=== PATIENT | male | born 1995 | race Caucasian/White ===

== ENCOUNTER 2017-06-04 17:02 | Emergency (ER) | payer OTHER, BC ==
[2017-06-04 17:11] VITALS: BP 118/78; BMI 31.4
--- NOTE | 2017-06-04 17:38 | DR.GENAD ---
HPI - PCP Primary Care Physician: erin - Complaint/Symptoms Chief Complaint Doctors Comments: History as stated Chief Complaint:: patient stated he fell at work and landed on his right elbow and left lower leg - Source History Provided: Patient - Mode of Arrival Mode of Arrival: Ambulatory - Timing Onset of Chief Complaint: 06/04/17 PMH - PMH Past Medical History: Yes Past Medical History: GERD Past Surgical History: Yes Surgical History: Ortho Surgery Unable to Obtain Due To: Dementia - Family History History of Family Medical Conditions: Yes Family Medical History: Hypertension - Social History Does patient currently use any type of tobacco product: No Have you used tobacco products in the last 12 months: No Type of Tobacco Use: None Does any household member use tobacco: No Alcohol Use: None Do you use any recreational Drugs:: No Lives With: Family Lives Where: Home - infectious screening In the last 2 months have you had wt loss of >10#?: NO Have you had fever, night sweats or hemotysis?: No Have you traveled outside the country in the last 6 months?: No Isolation: Standard ROS - Review of Systems Eyes: No Symptoms Reported ENTM: No Symptoms Reported Respiratoy: No Symptoms Reported Cardiovascular: No Symptoms Reported Gastrointestinal/Abdominal: No Symptoms Reported Genitourinary: No Symptoms Reported Neurological: No Symptoms Reported Musculoskeletal: Elbow (abrasions), Leg Hematologic/Lymphatic: No Symptoms Reported Endocrine: No Symptoms Reported Psychiatric: No Symptoms Reported All Other Systems: Reviewed and Negative PE - Vital Signs Vitals: Temperature 98.1 F Pulse Rate 62 Respiratory Rate 16 Blood Pressure 118/78 O2 Sat by Pulse Oximetry 98 - General General Appearance: Alert, In No Apparent Distress - Head Head Exam: Normal Inspection, Atraumatic - Eyes Eye exam: Normal Appearance, PERRL, EOMI - ENT ENT Exam: Normal Exam, Normal Oropharynx External Ear Exam: Normal External Inspection TM/Canal Exam: Bilateral Normal Nose Exam: Normal Nose Exam Mouth Exam: Normal Inspection Throat Exam: Normal Inspection - Neck Neck Exam: Normal Inspection - Chest Chest Inspection: Normal Inspection - Respiratory Respiratory Exam: Normal Lung Sounds Bilat Respiratory Exam: Bilateral Clear to Auscultation - Cardiovascular Cardiovascular Exam: Regular Rate, Normal Rhythm - Abdominal Exam Abdominal Exam: Normal Inspection, Normal Bowel Sounds Abdominal Tenderness: negative: RUQ, RLQ, LUQ, LLQ, Epigastrium, Suprapubic, Diffuse, Mild, Moderate, Severe, Other - Extremities Extremities Exam: Tenderness (right lower extremity w/o abrasion) - Back Back Exam: Normal Inspection, Full ROM - Neurologic Neurological Exam: Alert, Oriented X3, CN II-XII Intact - Psychiatric Psychiatric Exam: Normal Affect, Normal Mood - Skin Skin Exam: Warm, Dry, Other (right hip contusion) ROR - XRAY XRAY Interpreted by: Radiologist (RLE/Hip: negative for fracture) - Diagnosis Discharge Problem: Contusion of right hip Qualifiers: Encounter type: initial encounter Qualified Code(s): S70.01XA - Contusion of right hip, initial encounter Contusion of elbow, right Qualifiers: Encounter type: initial encounter Qualified Code(s): S50.01XA - Contusion of right elbow, initial encounter - Discharge Plan Condition: Stable - Follow ups/Referrals Follow ups/Referrals: KIM GODINEZ [Primary Care Provider] - 3 days - Instructions
--- NOTE | 2017-06-04 18:11 | RAD ---
Two views of the left foreleg Indication: Foreleg pain after fall. Findings: No acute fracture or malalignment of the left foreleg. No localizing soft tissue swelling. Left ankle the knee joint alignment are anatomic. Impression: No radiographic abnormality within the left foreleg. Reported By:
--- NOTE | 2017-06-04 19:09 | RAD ---
Right elbow three views Indication: Pain after fall. Findings: There is no effusion or displaced fat pads. No cortical lucency or malalignment seen. Impression: No acute right elbow fracture. Reported By:
== END 2017-06-04 19:42 | disposition home or self-care (01) ==
LOC: ER 17:21
DX: S70.01XA Contusion of right hip, initial encounter (principal); S50.01XA Contusion of right elbow, initial encounter; W19.XXXA Unspecified fall, initial encounter; Y92.69 Other specified industrial and construction area as the place of occurrence of the external cause
CPT/HCPCS: 73070; 73590; 99282

== ENCOUNTER 2017-07-17 13:34 | Emergency (ER) | payer OTHER, BC ==
[2017-07-17 13:37] VITALS: BP 133/79; BMI 32.1
[2017-07-17] MEDS ORDERED: ADACEL TDaP IM ONE ×2 (13:50→13:53)
--- NOTE | 2017-07-17 14:06 | DR.GENAD ---
HPI - PCP Primary Care Physician: KATLYN - HPI Comment HPI Comment: FINGER WAS CUT IN A MACHINE TODAY. TD NOT UTD. - Complaint/Symptoms Chief Complaint Doctors Comments: CRUSH INJURY WITH LACERATION RT 3RD FINGER. Chief Complaint:: PT C/O RT 3 RD DIGIT LACERATION. PT STATES HE GOT HIS HAND CAUGHT IN A MACHINE - Nurses notes reviewed Nurses Notes Review: Yes - Source History Provided: Patient - Mode of Arrival Mode of Arrival: Ambulatory - Timing Onset of Chief Complaint: 07/17/17 Came on: Suddenly - Duration Duration: Constant Duration: Hours - Severity Severity: Moderate PMH - PMH Past Medical History: Yes Past Medical History: GERD Past Surgical History: Yes Surgical History: Ortho Surgery Past Surgical History Comment: SHOULDER - Family History History of Family Medical Conditions: Yes Family Medical History: Hypertension - Social History Does any household member use tobacco: No Alcohol Use: None Do you use any recreational Drugs:: No Lives With: Family Lives Where: Home - infectious screening In the last 2 months have you had wt loss of >10#?: NO Have you had fever, night sweats or hemotysis?: No Have you traveled outside the country in the last 6 months?: No Isolation: Standard ROS - Review of Systems Constitutional: No Symptoms Reported Eyes: No Symptoms Reported ENTM: No Symptoms Reported Respiratoy: No Symptoms Reported Cardiovascular: No Symptoms Reported Gastrointestinal/Abdominal: No Symptoms Reported Genitourinary: No Symptoms Reported Neurological: No Symptoms Reported Musculoskeletal: No Symptoms Reported Integumentary: Change in Color, Wound (CRUSH INJURY AND LACERATION RIGHT 3RD FINGER.) Hematologic/Lymphatic: No Symptoms Reported Endocrine: No Symptoms Reported All Other Systems: Reviewed and Negative PE - Vital Signs Vitals: Temperature 98.2 F Pulse Rate 92 Respiratory Rate 18 Blood Pressure 133/79 O2 Sat by Pulse Oximetry 99 - General Limitations: No Limitations General Appearance: Alert - Head Head Exam: Normal Inspection - Eyes Eye exam: Normal Appearance - ENT ENT Exam: Normal External Ear Exam External Ear Exam: Normal External Inspection TM/Canal Exam: Bilateral Normal Nose Exam: Normal Nose Exam Mouth Exam: Normal Inspection Throat Exam: Normal Inspection - Neck Neck Exam: Normal Inspection - Chest Chest Inspection: Symmetric Chest Wall Rise - Respiratory Respiratory Exam: Normal Lung Sounds Bilat Respiratory Exam: Bilateral Clear to Auscultation - Cardiovascular Cardiovascular Exam: Regular Rate, Normal Rhythm, Normal Heart Sounds - Abdominal Exam Abdominal Exam: Normal Inspection - Extremities Extremities Exam: Tenderness (RT 3RD FINGER SWOLLEN AND TENDER. SMALL LAC DISTAL ASPECT OF THE FINGER.) - Neurologic Neurological Exam: Alert, Oriented X3 - Skin Skin Exam: Erythema MDM - Additional Information Additional Information Obtained From: Family - Differential Diagnosis Differential Diagnosis: CRUSH INJURY RT 3RD FINGER, LAC RT 3RD FINGER Course - Treatment Treatment: LAC DERMA BOO AND STERI STRIP. SEE ORDERS. - Education/Counseling Education/Counseling: Patient, Family, Education Educated On: Treatment, Diagnosis, Needs for Follow Up ROR - XRAY XRAY Interpreted by: Radiologist XRAY Findings: REPORT DISCUSS WITH PATIENT. Procedures - Laceration/Wound Repair Right 3rd Digit Wound's Depth, Shape: Flap Wound Explored: clean Wound Repaired With: Steri-strips, Dermabond Layer Closure?: No Progress: DERMABOND OVER WOUND AND STERI STRIP APPLIED. - Diagnosis Discharge Problem: Crushing injury of finger of right hand Laceration of finger of right hand Qualifiers: Encounter type: initial encounter Finger: middle finger Damage to nail status: without damage Foreign body presence: without foreign body Qualified Code(s): S61.212A - Laceration without foreign body of right middle finger without damage to nail, initial encounter - Discharge Plan Disposition: 01 HOME, SELF-CARE Condition: Stable - Follow ups/Referrals Follow ups/Referrals: NFD,None [Primary Care Provider] - 2 days - Instructions Instructions: Tissue Adhesive Wound Care, [id number] Additional Instructions: RETURN TO ED IF WORSE.
--- NOTE | 2017-07-17 14:24 | RAD ---
Examination: Right hand, three views History: Crush injury distal 3rd digit Findings: There is no definite fracture, dislocation or radiopaque foreign body. Joint spaces are kermit ntained. There is soft tissue swelling involving the distal portion of the 3rd finger. Impression: Soft tissue swelling, no fracture identified. New Reported By:
== END 2017-07-17 15:05 | disposition home or self-care (01) ==
LOC: ER 13:39
PROC: 0XQQ0ZZ Repair Right Middle Finger, Open Approach (ICD-10-PCS; principal; 2017-07-17)
DX: S67.21XA Crushing injury of right hand, initial encounter (principal); S61.212A Laceration without foreign body of right middle finger without damage to nail, initial encounter; W31.9XXA Contact with unspecified machinery, initial encounter; Y92.9 Unspecified place or not applicable
CPT/HCPCS: 73130; 90471; 99282